=== PATIENT | female | born 2000 | race Caucasian/White ===

== ENCOUNTER 2023-04-11 10:58 | Emergency (ER) | payer OTHER ==
[~2023-04-11] VITALS: Ht 160 cm; Wt 95.5 kg
[2023-04-11] MEDS ORDERED: ZOLO25TA PO (11:08)
[2023-04-11] MEDS ORDERED: DOXY50CA51 PO (11:08)
[2023-04-11] MEDS ORDERED: LIDOCAINE 2% MDV 20ML VIAL SC ONE (14:20)
[2023-04-11] MEDS ORDERED: NEOSPORIN OINT 0.9 GM PKT TOP ONE (15:05)
[2023-04-11] MEDS ORDERED: CEPH500C PO (15:53)
[2023-04-11 16:05] VITALS: BP 130/80
== END 2023-04-11 16:07 | disposition home or self-care (01) ==
LOC: M ED 10:58
DX: S91.114A Laceration without foreign body of right lesser toe(s) without damage to nail, initial encounter (principal); Z79.52 Long term (current) use of systemic steroids; Z79.899 Other long term (current) drug therapy